=== PATIENT | male | born 1980 | race Caucasian/White ===

== ENCOUNTER 2017-04-06 08:48 | Emergency (ER) | payer OTHER ==
--- NOTE | ~2017-04-06 | EKG ---
PATIENT: DL SALCIDO UNIT #: [id number] Ventricular Rate: 92 BPM Atrial Rate: 249 BPM QRS Duration: 94 ms Q-T Interval: 376 ms QTC Calculation(Bezet): 464 ms Calculated R [place]: 155 degrees Calculated T [place]: 58 degrees Diagnosis Line: Atrial flutter with variable A-V block Diagnosis Line: Incomplete right bundle branch block Diagnosis Line: Right ventricular hypertrophy with repolarization Diagnosis Line: abnormality Diagnosis Line: Nonspecific T wave abnormality Diagnosis Line: Prolonged QT Diagnosis Line: Abnormal ECG Diagnosis Line: When compared with ECG of 23-MAR-2016 14:03, Diagnosis Line: Atrial flutter has replaced Sinus rhythm Diagnosis Line: Criteria for Lateral infarct are no longer Present Diagnosis Line: Nonspecific T wave abnormality no longer evident Diagnosis Line: in Inferior leads Diagnosis Line: Nonspecific T wave abnormality no longer evident Diagnosis Line: in Lateral leads Diagnosis Line: Confirmed by KRISTA RICHMOND MD ([id number]) on Diagnosis Line: 04/08/2017 3:16:15 PM INTERPRETING MD: YI SALGADO
--- NOTE | ~2017-04-06 | CR72 ---
[facility] A Service of [facility] & [facility] / [facility] RADIOLOGY TEXT RESULTS PATIENT: DL SALCIDO LOCATION: [facility] : 80 UNIT #: [id number] AGE: [address]: Obinna Rain MD SEX: M ORDER DR: [id number] [facility]. [place], [place] [address] [id number] MR#: [id number] Acc #: [id number] NAME: DL SALCIDO : 1980 SEX: M STUDY DATE/TIME: 04/06/2017 9:27 UNIT: [facility] ROOM: STUDY DESCRIPTION: CR Chest Single View Portable Attending Physician: Obinna Rain M.D. Ordering Physician: Obinna Rain M.D. Primary Care Physician: Primary Care Physician No MEDICAL IMAGING REPORT This report is preliminary unless electronic signature is present EXAM Portable chest INDICATION Shortness of breath today. COMPARISON 04/30/2015 FINDINGS Stable volume loss in the left base. No acute-appearing infiltrate. Heart size stable. Prior sternotomy. IMPRESSION No active disease. Dictated by... Jayesh Ordoñez M.D. THIS IS AN ELECTRONICALLY VERIFIED REPORT Jayesh Ordoñez M.D. at 04/07/2017 12:33 PM Adam TD: 04/06/2017 10:24 JOB #: [id number] MEDICAL IMAGING REPORT Page 1 of 1 COPY
[~2017-04-06 08:48] MED LIST: ACETAMINOP160 MG/11 GT; ACETAMINOP160 MG/12 DOB; ACETAMINOP160 MG/54 PEG; ACETAMINOPHEN650 M1 GT; ALBUTEROL MININEB NEB; ALBUTEROL0.83 MG/ML INH; AMITIZA; ANTACID650 MG PEG; ATROVENT NASAL15 ML; ATROVENT30 ML NS; BANZEL PO; BENADRYL A12.5 MG/1 DOB; BENADRYL A12.5 MG/1 GT; BISACODYL10 MG/SUPP; BISACODYL10 MG/SUPP PR; CAL-CITRATE PL1 EACH GT; CALCIUM + D 6001 TA1 DOB; CALCIUM 500 + D1 TAB PO; CALCIUM CITRATE1 T12 GT; CALCIUM CITRATE1 T12 PEG; CALCIUM CITRATE1 T15 GT; CALCIUM PO; CHLORHEXIDINE GLUCONATE 0.12%; CITRACAL200 MG PO; CLARITIN10 MG; CLONAZEPAM0.5 MG GT; CLONAZEPAM2 MG DOB; CLONAZEPAM2 MG GT; DEPAKOTE SPRIN125 M1 DOB; DEPAKOTE SPRIN125 M1 GT; DIASTAT ACUDIAL1 KIT; DIASTAT10 MG PR; DILANTIN GT; DILANTIN PO; DILANTIN-1125 MG/5 M DOB; DILANTIN50 MG GT; DULCOLAX10 MG/SUPP PR; DULCOLAX10 MG/SUPP RC; ELIQUIS5 MG GT; FLONASE 0.05% N16 G1; FLONASE16 GM; FLUNISOLIDE25 ML INH; GENTLE LAXATIVE10 MG RC; KEFLEX; KLONOPIN; KLONOPIN GT; KLONOPIN PO; KLONOPIN0.5 MG; KLONOPIN0.5 MG DOB; KLONOPIN0.5 MG FT; KLONOPIN0.5 MG GT; KLONOPIN0.5 MG PEG; KLONOPIN1 MG GT; LACTULOSE10 G/15 M1 DOB; LACTULOSE10 G/15 M1 GT; LACTULOSE10 G/15 ML GT; LACTULOSE10 G/15 ML PEG; LACTULOSE10 G/15 ML PO; LAMICTAL; LAMICTAL GT; LAMICTAL PEG; LAMICTAL PO; LAMICTAL100 MG GT; LAMICTAL25 MG GT; LAMOTRIGINE200 MG DOB; LAMOTRIGINE200 MG GT; LORATADINE5 MG/5 ML GT; MAGIC BUTT C; MAPAP160 MG/51 GT; MELATONIN3 M4 GT; MELATONIN3 M4 PO; MILK OF MAGNESIA DOB; MILK OF MAGNESIA GT; MIRALAX17 G2 GT; MIRALAX17 GM DOB; MIRALAX255 GM GT; MIRALAX255 GM PEG; MIRALAX255 GM PO; MONTELUKAST SOD10 MG DOB; MULTAQ400 MG GT; NASALIDE INHALE25 ML; NEXIUM40 MG/PACK PEG; OMEPRAZOLE40 MG GT; ONFI10 MG DOB; ONFI10 MG PO; ONFI2.5 MG/1 M GT; OYSTER CALCIUM500 MG; PERIDEX480 ML PO; PHENOBARBITAL30 M1 PEG; PHENOBARBITAL32.4 MG GT; PHENYTOIN50 MG DOB; POLYETHYLENE GL90 GM GT; PREVACID; PREVACID GT; PREVACID SOLUTA30 MG GT; PROBIOTIC1 EACH PO; REMERON SOLTAB; RISAMINE OINTM113 GM TOP; SENNA S TABLET1 TAB; SENNA8.8 MG/5 M DOB; SENNA8.8 MG/5 M GT; SINGULAIR GT; SINGULAIR PEG; SOD BICARBONATE GT; SOD BICARBONATE PO; SODIUM BICARBO650 MG GT; SODIUM BICARBO650 MG PEG; TOPAMAX; TOPAMAX GT; TOPAMAX PEG; TOPAMAX PO; TOPIRAGEN100 MG GT; TOPIRAGEN50 MG GT; TOPIRAMATE100 MG GT; TOPIRAMATE200 M1 GT; TOPIRAMATE50 MG GT; TYLENOL160 MG/5 M GT; VIMPAT GT; VIMPAT150 MG PEG; VITAMIN D GT; VITAMIN D1000 UNI1 GT; VITAMIN D1000 UNI1 PEG; VITAMIN D1000 UNIT DOB; VITAMIN D1000 UNIT GT; ZELNORM; ZOFRAN2 MG/ML IV; ZYVOX600 MG GT; ZZ IMMUNOTHERAPY SUBQ; [UNRECOGNIZED DRUG - OTHER] PO
[2017-04-06 11:52] LABS: BASOPHIL# 0.1 X10e3 (0-0.3); BASOPHIL% 0.5 % (0-2.5); EOSINOPHIL# 0.1 X10e3 (0-0.7); EOSINOPHIL% 0.6 % (0.0-7.0); HEMATOCRIT 52.7 % (38.0-50.0); HEMOGLOBIN 17.1 gm/dL (13.0-16.0); LYMPHOCYTE# 3.7 X10e3 (1.0-3.5); LYMPHOCYTE% 35.4 % (17.0-45.0); MEAN CELL VOLUME 88.1 FL (83-96); MEAN CORPUSCULAR HEMOGLOBIN 28.6 PG (28-34); MEAN CORPUSCULAR HGB CONC 32.5 g/dL (30-36); MEAN PLATELET VOLUME 9.5 FL (6.5-11.5); MONOCYTE# 1.1 X10e3 (0-1.0); MONOCYTE% 10.9 % (3.0-12.0); NEUTROPHIL# 5.4 X10e3 (1.5-7.1); NEUTROPHIL% 52.6 % (40-75); PLATELET COUNT 215 X10e3 (140-420); RED BLOOD COUNT 5.98 X10e (3.90-5.60); WHITE BLOOD COUNT 10.3 X10e3 (4.0-10.5)
[2017-04-06 11:54] LABS: DIFF IND NO
[2017-04-06 12:17] LABS: BUN/CREATININE RATIO 8.18; CREATININE SERUM 1.1 mg/dL (0.6-1.4); DILANTIN (PHENYTOIN) 7.3 ug/mL (10.0-20.0); GLOM FILT RATE Estimated 85.3 mL/min (>60); POTASSIUM 4.2 mmol/L (3.5-5.1)
== END 2017-04-06 18:08 | disposition home or self-care (01) ==
LOC: CED 08:48
PROVIDERS: Emergency Medicine
DX: G40.909 Epilepsy, unspecified, not intractable, without status epilepticus (principal); K21.9 Gastro-esophageal reflux disease without esophagitis; Z88.8 Allergy status to other drugs, medicaments and biological substances
CPT/HCPCS: 36415; 71010; 80048; 80185; 82947; 85025; 93005; 96365; 99284; Q2009

== ENCOUNTER → 2017-04-07 | Outpatient (CLI) | payer OTHER | END | disposition home or self-care (01) | LOC: CHAZ 14:03 → CLAB 14:03 | DX: Z51.81 Encounter for therapeutic drug level monitoring (principal); Z79.899 Other long term (current) drug therapy | CPT/HCPCS: 80185; 80186 ==

== ENCOUNTER → 2017-04-16 | Outpatient (CLI) | payer OTHER | END | disposition home or self-care (01) | LOC: CSSDAY 10:00 | DX: M81.0 Age-related osteoporosis without current pathological fracture (principal) | CPT/HCPCS: 96372; J0897 ==